=== PATIENT | male | born 1975 | race Two or more races ===

== ENCOUNTER 2025-07-26 12:46 | Emergency (ER) | payer OTHER ==
[~2025-07-26] VITALS: Ht 185.4 cm; Wt 68.0 kg
[~2025-07-26 12:46] MED LIST: IBUPROFEN800 MG PO; SEPTRA DS TABLE1 TAB PO
[2025-07-26] MEDS ORDERED: RISEDRONATE SOD35 MG PO (13:04)
[2025-07-26] MEDS ORDERED: TETANUS & DIPHTHERIA TOX,ADULT 0.5 ML VIAL IM ONE (13:15)
[2025-07-26] MEDS ORDERED: CEFTRIAXONE SODIUM 1,000 MG VIAL IM ONE (13:15)
[2025-07-26] MEDS ORDERED: PEPCID AC20 MG PO (14:26)
[2025-07-26] MEDS ORDERED: CEFUROXIME500 MG PO (14:26)
== END 2025-07-26 14:35 | disposition home or self-care (01) ==
LOC: ER 12:46
DX: S80.872A Other superficial bite, left lower leg, initial encounter (principal); W55.01XA Bitten by cat, initial encounter; Y93.89 Activity, other specified; Y92.89 Other specified places as the place of occurrence of the external cause; Y99.9 Unspecified external cause status